=== PATIENT | male | born 1985 | race African-American/Black ===

== ENCOUNTER 2021-02-03 22:47 | Emergency (ER) | payer SELFPAY ==
[2021-02-03] MEDS ORDERED: predniSONE 20 MG TAB ONE (23:28)
[2021-02-03] MEDS ORDERED: diphenhydrAMINE 25 MG CAP ONE (23:28)
== END 2021-02-04 00:01 | disposition home or self-care (01) ==
LOC: CSHERS 22:47
DX: K13.0 Diseases of lips (principal)
CPT/HCPCS: 99283; J7512